=== PATIENT | female | born 1950 | race Caucasian/White ===

== ENCOUNTER 2025-01-02 11:03 | Emergency (ER) | payer MEDICARE, OTHER, SELFPAY ==
[2025-01-02 11:10] VITALS: BP 136/97; BMI 17.8
--- NOTE | 2025-01-02 11:25 | EDRN ---
Visitor in room w/ pt at this time.
--- NOTE | 2025-01-02 11:45 | EDRN ---
Dr. Matthews in to see pt.
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
[2025-01-02] MEDS: MOTRIN 400 MG PO (11:48)
[2025-01-02 12:06] VITALS: BP 152/82
--- NOTE | 2025-01-02 13:14 | EDRN ---
Dr. Matthews in room w /pt at this time.
[2025-01-02] MEDS: ROXICODONE 5 MG PO (13:33)
[2025-01-02] MEDS: TYLENOL 1000 MG PO (13:33)
[2025-01-02 13:45] VITALS: BP 154/88
== END 2025-01-02 14:07 | disposition home or self-care (01) ==
LOC: EMR 11:03
PROVIDERS: EMERGENCY PHYSICIAN Emergency Medicine; FAMILY PHYSICIAN Internal Medicine
DX: M80.88XA Other osteoporosis with current pathological fracture, vertebra(e), initial encounter for fracture (principal); W19.XXXA Unspecified fall, initial encounter
CPT/HCPCS: 99284; 72100; 72190